=== PATIENT | female | born 1990 | race African-American/Black ===

== ENCOUNTER 2017-02-25 17:20 | Emergency (ER) | payer SELFPAY ==
[~2017-02-25] VITALS: Ht 170.2 cm; Wt 70.0 kg
[2017-02-25 17:22] VITALS: BP 118/73; PULSE 89; RESP 14; TEMP 98.6; O2SAT 99
[2017-02-25] MEDS ORDERED: traMADol HCL 50 MG TAB PO ONE (19:15)
[2017-02-25] MEDS ORDERED: PENI500T PO (19:34)
[2017-02-25] MEDS ORDERED: TRAM50TA PO (19:34)
--- NOTE | 2017-02-25 19:34 | PD ---
HPI Chief Complaint: Oral / Dental Pain or Problem Time Seen by Provider: 18:54 Travel History International Travel<30 days: No Contact w/Intl Traveler<30days: No Traveled to known affect area: No History of Present Illness HPI Patient is a 26 year old female who comes in complaining of dental pain. She says she has had pain for the past 2 days. She localizes the pain to her left lower jaw. She denies any difficulty breathing or swallowing. She denies any fever or chills. She says she is trying to find a dentist. [facility] Past Medical History Diminished Hearing: No Headaches: Yes Migraines: Yes Influenza Vaccination: No ?: Not LMP: 02/24/2017 : 3 Para: 2 Past Surgical History Surgical History: No Previous Surgery Social History Alcohol Use: No Tobacco Use: No Substance Use: No Allergies-Medications (Allergen,Severity, Reaction): Coded Allergies: No Known Allergies (Verified , 02/25/17) Reported Meds & Prescriptions Reported Meds & Active Scripts Active No Active Prescriptions or Reported Medications Review of Systems General / Constitutional: No: Fever, Chills HENT: Positive: Dental Difficulties, No: Lightheadedness Respiratory: No: Shortness of Breath Gastrointestinal: No: Nausea Musculoskeletal: No: Myalgias Skin: No Change in Pigmentation Neurologic: No: Weakness, Dizziness Physical Exam Narrative GENERAL: Awake and alert, in no acute distress. SKIN: Focused skin assessment warm/dry. HEAD: Atraumatic. Normocephalic. EYES: Pupils equal and round. No scleral icterus. No injection or drainage. ENT: Back left sided, lower molars are decayed and broken. There is no gingival swelling or abscess. CARDIOVASCULAR: Regular rate and rhythm. No murmur appreciated. RESPIRATORY: No accessory muscle use. Clear to auscultation. Breath sounds equal bilaterally. MUSCULOSKELETAL: No obvious deformities. No clubbing. No cyanosis. No edema. NEUROLOGICAL: Awake and alert. No obvious cranial nerve deficits. Motor grossly within normal limits. Normal speech. Data Data Last Documented VS Vital Signs Date Time Temp Pulse Resp B/P Pulse Ox O2 Delivery O2 Flow Rate FiO2 02/25/17 17:22 98.6 89 14 118/73 99 Orders Tramadol (Ultram) (02/25/17 19:15) [facility] Medical Decision Making Medical Screen Exam Complete: Yes Emergency Medical Condition: Yes Medical Record Reviewed: Yes Differential Diagnosis Dental abscess versus broken tooth versus gingival infection Narrative Course Patient is a 26-year-old female comes in complaining of tooth pain. She is requesting antibiotics. Exam shows a broken and decaying tooth. Patient given tramadol for pain. Discharged with prescriptions for tramadol and penicillin. Advised needs to follow up with a dentist. Advised to return to the ED as needed for any worsening symptoms. Diagnosis Primary Impression: Broken tooth Qualified Code: S02.5XXA - Closed fracture of tooth, initial encounter Patient Instructions: Dental Abscess (ED), General Instructions Additional Instructions: Follow up with a dentist. Take Ibuprofen as needed for pain. If needed, you can take Tramadol. Take all of the antibiotics. Scripts Penicillin V Potassium 500 Mg Mon334 Mg PO Q6H 7 Days Ref 0 Prov:Kimberlyn Noble MD 02/25/17 Tramadol 50 Mg Tab50 Mg PO Q6H PRN (PAIN) #10 TAB Ref 0 Prov:Kimberlyn Noble MD 02/25/17 Disposition: 01 DISCHARGE HOME Condition: Stable Kimberlyn Noble MD Feb 25, 2017 19:34
== END 2017-02-25 20:33 | disposition home or self-care (01) ==
LOC: NEPD 17:20
DX: S02.5XXA Fracture of tooth (traumatic), initial encounter for closed fracture (principal); K04.7 Periapical abscess without sinus; X58.XXXA Exposure to other specified factors, initial encounter; Y93.9 Activity, unspecified; Y92.9 Unspecified place or not applicable
CPT/HCPCS: 99284

== ENCOUNTER 2017-10-27 18:17 | Emergency (ER) | payer SELFPAY ==
[~2017-10-27] VITALS: Ht 170.2 cm; Wt 71.0 kg
[~2017-10-27 18:17] MED LIST: PENI500T PO; TRAM50TA PO
[2017-10-27 18:20] VITALS: BP 135/82; PULSE 88; RESP 14; TEMP 99; O2SAT 100
--- NOTE | 2017-10-27 18:55 | PD ---
HPI Chief Complaint: Oral / Dental Pain or Problem Time Seen by Provider: 18:55 Travel History International Travel<30 days: No Contact w/Intl Traveler<30days: No Traveled to known affect area: No History of Present Illness HPI 27-year-old -Domin[place] female presents emergency department with pain and swelling to the left lower jaw. Patient states it started 2 days ago. She has very large caries in the #18 and 17 teeth. She denies fever chills or chills. She denies difficulty swallowing. Pain is 8 out of 10. It is worse with hot and cold. She denies ear pain. She has no other symptoms. She has no known drug allergies PFSH Past Medical History Diminished Hearing: No Headaches: Yes Migraines: Yes ?: Not : 3 Para: 2 Social History Alcohol Use: No Tobacco Use: No Substance Use: No Allergies-Medications (Allergen,Severity, Reaction): Coded Allergies: No Known Allergies (Verified Adverse Reaction, Unknown, 10/27/17) Reported Meds & Prescriptions Reported Meds & Active Scripts Active No Active Prescriptions or Reported Medications Review of Systems Except as stated in HPI: all other systems reviewed are Neg General / Constitutional: No: Fever, Chills Eyes: No: Visual changes HENT: Positive: Dental Difficulties, No: Headaches, Vertigo, Lightheadedness, Sore Throat, Rhinitis, Rhinorrhea, Congestion, Nosebleed, Neck Stiffness, Neck Pain, Gingival Bleeding, Earache Cardiovascular: No: Chest Pain or Discomfort Respiratory: No: Shortness of Breath Gastrointestinal: No: Abdominal Pain Genitourinary: No: Dysuria Musculoskeletal: No: Pain Skin: No Rash Neurologic: No: Weakness Psychiatric: No: Depression Endocrine: No: Polydipsia Hematologic/Lymphatic: No: Easy Bruising Physical Exam Narrative GENERAL: Patient appears in mild to moderate distress per SKIN: Warm and dry. Normal color. Normal turgor. No rash HEAD: Atraumatic. Normocephalic. EYES: Pupils equal and round. No scleral icterus. No injection or drainage. ENT: No nasal bleeding or discharge. Mucous membranes pink and moist. Patient is very poor dental health with multiple caries and some missing teeth. Patient has moderate swelling to the left lower jaw just above the ramus. TMs are clear bilaterally. Posterior pharynx is clear. Airway is patent. NECK: Trachea midline. Supple and nontender without significant lymphadenopathy. No signs of Zeferino's angina CARDIOVASCULAR: Regular rate and rhythm. RESPIRATORY: No accessory muscle use. Clear to auscultation. Breath sounds equal bilaterally. MUSCULOSKELETAL: Extremities without clubbing, cyanosis, or edema. No obvious deformities. NEUROLOGICAL: Awake and alert. No obvious cranial nerve deficits. Motor grossly within normal limits. Five out of 5 muscle strength in the arms and legs. Normal speech. PSYCHIATRIC: Appropriate mood and affect; insight and judgment normal. Data Data Last Documented VS Vital Signs Date Time Temp Pulse Resp B/P (MAP) Pulse Ox O2 Delivery O2 Flow Rate FiO2 10/27/17 18:20 99.0 88 14 135/82 (99) 100 Orders Orders Ibuprofen (Motrin) (10/27/17 19:00) Penicillin V Potassium (Veetids) (10/27/17 19:00) MDM Medical Decision Making Medical Screen Exam Complete: Yes Emergency Medical Condition: Yes Differential Diagnosis Dental caries. Dental pain. Dental abscess. Narrative Course Patient is medically stable at time of exam. Patient is given Pen-Vee K 500 mg p.o. now. Patient is given 800 mg ibuprofen p.o. now. Patient is continued on Pen-Vee K 500 mg 4 times daily 10 days. Patient is given ibuprofen 800 mg 3 times daily #30. Patient is given Magic mouthwash as directed 120 mL's with 1 refill. Patient to follow-up with dentist as soon as possible. Diagnosis Primary Impression: Dental abscess Referrals: Dentist Patient Instructions: Dental Abscess (ED), General Instructions Additional Instructions: Patient is continued on Pen-Vee K 500 mg 4 times daily 10 days. Patient is given ibuprofen 800 mg 3 times daily #30. Patient is given Magic mouthwash as directed 120 mL's with 1 refill. Patient to follow-up with dentist as soon as possible. Med/Other Pt SpecificInfo: Prescription(s) given Scripts No Active Prescriptions or Reported Meds Disposition: 01 DISCHARGE HOME Condition: Stable Chris Duran Oct 27, 2017 18:55
[2017-10-27] MEDS ORDERED: IBUPROFEN 800 MG TAB PO ONE (19:00)
[2017-10-27] MEDS ORDERED: PENICILLIN V POTASSIUM 500 MG TAB PO ONE (19:00)
[2017-10-27] MEDS ORDERED: IBUP1TAB7 PO (19:05)
[2017-10-27] MEDS ORDERED: MAGICADU2 SWISH-SPIT (19:05)
[2017-10-27] MEDS ORDERED: PENI500T PO (19:05)
== END 2017-10-27 20:11 | disposition home or self-care (01) ==
LOC: NEPD 18:17
DX: K04.7 Periapical abscess without sinus (principal)
CPT/HCPCS: 99283